=== PATIENT | female | born 1965 | race Caucasian/White ===

== ENCOUNTER 2016-08-14 22:31 | Observation (INO) | payer OTHER ==
[~2016-08-14] VITALS: Ht 335.8 cm; Wt 74.3 kg
[~2016-08-14 22:31] MED LIST: ADVAIR 250-501 EACH IH; ADVAIR 250/501 DISK IH; ALBUTEROL17 GM IH; AMBIEN5 MG PO; ANAPROX DS550 M1 PO; BACTRIM,SEPT1 TABLET PO; CELEBREX200 MG PO; Combivent IH; DESYREL12.5 MG PO; EFFEXOR75 MG PO; ENDOCET 5-3251 EACH PO; ENDOCET 7.5-321 EACH PO; Flagyl PO; LAMISIL250 MG PO; LYRICA150 MG PO; LYRICA75 MG PO; NAPROSYN500 MG PO; NEXIUM40 MG PO; NIASPAN; OPANA ER20 MG PO; PEPCID PO; PEPCID40 MG PO; PERCOCET 5/31 TABLET PO; PROAIR HFA8.5 GM IH; PROTONIX40 MG PO; PROZAC20 MG PO; PROZAC40 MG PO; Protonix PO; SINGULAIR10 MG PO; SPIRIVA1 INHALATI IH; Singulair PO; TOPAMAX100 MG PO; TRAMADOL HCL50 MG PO; TRAZODONE HCL50 MG PO; VIBRAMYCIN100 MG PO; VICODIN 5-3001 EACH PO; Vibramycin, Doryx PO; WELLBUTRIN SR150 MG PO; WELLBUTRIN XL300 MG PO; Wellbutrin XL PO; ZANAFLEX4 MG PO; ZANTAC150 MG PO
[2016-08-14 23:07] LABS: HEMATOCRIT 38.3 % (36.0-46.0); MCH 30.1 PG (29.0-34.0); MCHC 33.4 G/DL (30.0-36.0); MCV 90.1 FL (83-99); MEAN PLAT.VOLUME 10.3 uM^3 (9.5-12.4); PLATELET COUNT 347 K/uL (156-360); RBC DIS.WIDTH-SD 39.4 % (39-53); RED BLOOD COUNT 4.25 M/uL (3.80-5.20); WHITE BLOOD COUNT 12.4 K/uL (4.1-10.2)
[2016-08-14 23:19] LABS: CHLORIDE 107 mEq/L (99-109); POTASSIUM 3.8 mEq/L (3.7-5.4); SODIUM 139 mEq/L (136-147)
[2016-08-14 23:21] LABS: GLUCOSE 106 mg/dL (70-99)
[2016-08-14 23:22] LABS: D-DIMER ELISA 0.66 mg/L FEU (< 0.57)
[2016-08-14 23:23] LABS: ANION GAP 10 MEQ/L (2-14)
[2016-08-14 23:25] LABS: GFR ESTIMATE (CALCULATED) 50 mL/min/
[2016-08-14 23:26] LABS: UREA NITROGEN (BUN) 7 mg/dL (9-23)
[2016-08-14 23:29] LABS: TROP-I INTERPRETATION NEGATIVE; TROPONIN-I < 0.01 ng/mL (0.0-0.30)
[2016-08-14 23:39] LABS: QUANTITATIVE HCG < 4.0 MIU/ML
[2016-08-15 00:21] LABS: ADD MIUA? YES; BILIRUBIN NEGATIVE; BLOOD MODERATE; COLOR YELLOW ((YELLOW)); GLUCOSE (STRIP) NEGATIVE; KETONES NEGATIVE; LEUKOCYTES SMALL; NITRITE NEGATIVE; PROTEIN (STRIP) NEGATIVE; SPECIFIC GRAVITY 1.008 (1.000-1.030); UROBILINOGEN 0.2 MG/DL (0.2-1.0)
[2016-08-15 00:27] LABS: BACTERIA RARE /HPF; EPITHELIAL CELLS RARE /HPF; MUCUS NONE SEEN /LPF; RED BLOOD CELLS 0-5 /HPF (0-5); UCUL ADDED? NO; WHITE BLOOD CELLS 0-5 /HPF (0-5)
[2016-08-15 04:10] VITALS: BP 132/73
[2016-08-15 04:49] LABS: HEMATOCRIT 37.7 % (36.0-46.0); MCH 30.3 PG (29.0-34.0); MCHC 33.2 G/DL (30.0-36.0); MCV 91.5 FL (83-99); MEAN PLAT.VOLUME 10.2 uM^3 (9.5-12.4); PLATELET COUNT 302 K/uL (156-360); RBC DIS.WIDTH-CV 12.2 % (11.8-14.6); RBC DIS.WIDTH-SD 40.9 % (39-53); RED BLOOD COUNT 4.12 M/uL (3.80-5.20); WHITE BLOOD COUNT 8.3 K/uL (4.1-10.2)
[2016-08-15 04:59] LABS: CHLORIDE 108 mEq/L (99-109); POTASSIUM 4.3 mEq/L (3.7-5.4); SODIUM 139 mEq/L (136-147)
[2016-08-15 05:01] LABS: GLUCOSE 123 mg/dL (70-99)
[2016-08-15 05:02] LABS: ANION GAP 11 MEQ/L (2-14)
[2016-08-15 05:03] LABS: TOTAL BILIRUBIN 0.3 mg/dL (0.0-1.0)
[2016-08-15 05:04] LABS: ALKALINE PHOSPHATASE 99 IU/L (3-129)
[2016-08-15 05:05] LABS: GFR ESTIMATE (CALCULATED) 56 mL/min/
[2016-08-15 05:06] LABS: UREA NITROGEN (BUN) 9 mg/dL (9-23)
[2016-08-15 05:11] LABS: TROP-I INTERPRETATION NEGATIVE; TROPONIN-I < 0.01 ng/mL (0.0-0.30)
[2016-08-15] MEDS ORDERED: NAPROSYN500 MG PO (08:59)
[2016-08-15] MEDS ORDERED: GABAPENTIN600 MG PO (09:00)
[2016-08-15] MEDS ORDERED: XANAX1 MG PO (09:01)
[2016-08-15] MEDS ORDERED: AMITRIPTYLINE H75 MG PO (09:01)
[2016-08-15] MEDS ORDERED: MELOXICAM15 MG PO (09:02)
[2016-08-15] MEDS ORDERED: CYMBALTA60 MG PO (09:02)
[2016-08-15 09:59] VITALS: BP 102/56
[2016-08-15 11:09] LABS: TROP-I INTERPRETATION NEGATIVE; TROPONIN-I < 0.01 ng/mL (0.0-0.30)
[2016-08-15 11:36] VITALS: BP 110/60
[2016-08-15] MEDS ORDERED: NICOTINE PATCH1 EAC2 TD (17:02)
[2016-08-15] MEDS ORDERED: ADVAIR HFA120 INHALA IH (17:03)
[2016-08-15] MEDS ORDERED: BACTRIM,SEPT1 TABLET PO (17:38)
== END 2016-08-15 18:41 | disposition home or self-care (01) ==
LOC: EME → EDBD 22:31 → EME 22:31 → EDOF 08-15 02:46 → 5WEST 08-15 03:55
PROVIDERS: Emergency Medicine; Internal Medicine
DX: R07.9 Chest pain, unspecified (principal); F17.200 Nicotine dependence, unspecified, uncomplicated; M79.7 Fibromyalgia; F31.9 Bipolar disorder, unspecified
CPT/HCPCS: 71020; 71275; 80048; 80053; 81003; 84484; 84702; 85027; 85379; 93005; 94640; 99281; 99284; G0378; J1200; J1644; J2270; J2405; J2930; J7030

== ENCOUNTER 2016-10-11 07:55 | Inpatient (IN) | payer OTHER ==
[~2016-10-11] VITALS: Ht 170.2 cm; Wt 68.0 kg
[~2016-10-11 07:55] MED LIST changes: +ADVAIR HFA120 INHALA IH; +AMITRIPTYLINE H75 MG PO; +CYMBALTA60 MG PO; +GABAPENTIN600 MG PO; +MELOXICAM15 MG PO; +NICOTINE PATCH1 EAC2 TD; +XANAX1 MG PO
[2016-10-11 08:51] LABS: BASOPHIL COUNT 0.1 K/uL (0-0.1); EOSINOPHIL (%) 2.3 % (0-5); EOSINOPHIL COUNT 0.4 K/uL (0-0.3); HEMATOCRIT 40.4 % (36.0-46.0); IMMATURE GRANULOCYTE (%) 0.5 % (0.0-0.7); IMMATURE GRANULOCYTE COUNT 0.1 K/uL; INSTRUMENT ABS NEUTROPHIL CT 11.5 K/uL; LYMPHOCYTE COUNT 2.5 K/uL (1.0-2.8); MCH 29.8 PG (29.0-34.0); MCHC 33.4 G/DL (30.0-36.0); MCV 89.2 FL (83-99); MEAN PLAT.VOLUME 10.1 uM^3 (9.5-12.4); MONOCYTE (%) 4.4 % (3-12); MONOCYTE COUNT 0.7 K/uL (0-0.8); NEUTROPHIL (%) 75.9 % (45-76); NEUTROPHIL COUNT 11.5 K/uL (1.8-6.4); PLATELET COUNT 333 K/uL (156-360); RBC DIS.WIDTH-CV 12.5 % (11.8-14.6); RBC DIS.WIDTH-SD 41.1 % (39-53); RED BLOOD COUNT 4.53 M/uL (3.80-5.20); WHITE BLOOD COUNT 15.2 K/uL (4.1-10.2)
[2016-10-11 09:03] LABS: PROTHROMBIN TIME 10.3 (9.2-11.2); PTT 28.2 (25-32)
[2016-10-11 09:07] LABS: CHLORIDE 110 mEq/L (99-109); POTASSIUM 3.7 mEq/L (3.7-5.4); SODIUM 142 mEq/L (136-147)
[2016-10-11 09:10] LABS: GLUCOSE 98 mg/dL (70-99)
[2016-10-11 09:11] LABS: ANION GAP 11 MEQ/L (2-14)
[2016-10-11 09:12] LABS: TOTAL BILIRUBIN 0.8 mg/dL (0.0-1.0)
[2016-10-11 09:13] LABS: ALKALINE PHOSPHATASE 127 IU/L (3-129); GFR ESTIMATE (CALCULATED) > 59 mL/min/; TROP-I INTERPRETATION NEGATIVE; TROPONIN-I < 0.01 ng/mL (0.0-0.30)
[2016-10-11 09:14] LABS: UREA NITROGEN (BUN) 11 mg/dL (9-23)
[2016-10-11 09:17] LABS: LIPASE 29 U/L (1.0-51.0)
[2016-10-11 10:22] LABS: ADD MIUA? YES; BILIRUBIN NEGATIVE; BLOOD MODERATE; COLOR YELLOW ((YELLOW)); GLUCOSE (STRIP) NEGATIVE; KETONES NEGATIVE; LEUKOCYTES NEGATIVE; NITRITE NEGATIVE; PROTEIN (STRIP) NEGATIVE; SPECIFIC GRAVITY 1.021 (1.000-1.030)
[2016-10-11 10:33] LABS: BACTERIA RARE /HPF; EPITHELIAL CELLS 1+ /HPF; MUCUS NONE SEEN /LPF; RED BLOOD CELLS 0-5 /HPF (0-5); UCUL ADDED? NO; URIC ACID CRYSTALS 1+ /HPF; WHITE BLOOD CELLS 0-5 /HPF (0-5)
[2016-10-11] MEDS ORDERED: GABAPENTIN300 MG PO (13:28)
[2016-10-11] MEDS ORDERED: PROAIR HFA8.5 GM IH (13:29)
[2016-10-11] MEDS ORDERED: WELLBUTRIN SR150 MG PO (13:29)
[2016-10-11] MEDS ORDERED: ADVAIR HFA120 INHALA IH (14:46)
[2016-10-11] MEDS ORDERED: BUPROPION HCL150 M2 PO (14:47)
[2016-10-11 16:43] VITALS: BP 134/84
[2016-10-11 20:00] VITALS: BP 112/65
[2016-10-12] VITALS: BP 136/83
[2016-10-12 03:00] VITALS: BP 138/66
[2016-10-12 07:07] LABS: ANION GAP 7 MEQ/L (2-14); CHLORIDE 107 MEQ/L (99-109); GFR ESTIMATE (CALCULATED) > 59 mL/min/; GLUCOSE 107 mg/dL (70-99); SAMPLE HEMOLYSIS CHECK 0; SAMPLE ICTERIC CHECK 0; SAMPLE LIPEMIA CHECK 0; SODIUM 141 MEQ/L (136-147); UREA NITROGEN (BUN) 11 mg/dL (9-23)
[2016-10-12 07:17] LABS: HEMATOCRIT 38.9 % (36.0-46.0); MCH 30.6 PG (29.0-34.0); MCHC 32.6 G/DL (30.0-36.0); MEAN PLAT.VOLUME 10.6 uM^3 (9.5-12.4); PLATELET COUNT 293 K/uL (156-360); RBC DIS.WIDTH-CV 12.9 % (11.8-14.6); RBC DIS.WIDTH-SD 44.6 % (39-53); RED BLOOD COUNT 4.15 M/uL (3.80-5.20); WHITE BLOOD COUNT 12.1 K/uL (4.1-10.2)
[2016-10-12 07:23] LABS: MCV 93.7 FL (83-99)
[2016-10-12 07:27] LABS: POTASSIUM 4.5 MEQ/L (3.7-5.4)
[2016-10-12 09:19] VITALS: BP 115/68
[2016-10-12 09:37] LABS: PROTHROMBIN TIME 10.2 (9.2-11.2); PTT 27.5 (25-32)
[2016-10-12 14:24] LABS: HDL CHOLESTEROL 33 MG/DL (Desirable>=50); LDL CHOLESTEROL 186 mg/dL (Desirable<100); NON-HDL CHOLESTEROL 204 mg/dL (Desirable<160); TOTAL CHOLESTEROL 237 mg/dL (Desirable<200); TRIGLYCERIDES 90 MG/DL (Normal: <150)
[2016-10-12 14:47] LABS: Estimated Average Glucose 105 mg/dL (70-123); HEMOGLOBIN A1c (GLYCOHEMOGLOB) 5.3 % HGB (Below 5.7)
[2016-10-12 15:01] LABS: BASE EXCESS 0 mEq/L (-3 to +3); BICARBONATE 24.8 mEq/L (22-26); COMMENTS - BLOOD GASES A+C+; FI02 21 %; METHEMOGLOBIN 1.7 % (0-1.5); PCO2 40 mm Hg (35-45); PO2 52 mm Hg (80-100); SITE RR; TOTAL RESP RATE 12 resp/min
[2016-10-12 16:47] VITALS: BP 131/71
[2016-10-12 19:45] VITALS: BP 129/63
[2016-10-12 23:47] VITALS: BP 115/69
[2016-10-13 03:39] VITALS: BP 119/70
[2016-10-13 07:14] LABS: HEMATOCRIT 32.7 % (36.0-46.0); MCH 30.9 PG (29.0-34.0); MCV 93.7 FL (83-99); MEAN PLAT.VOLUME 10.7 uM^3 (9.5-12.4); PLATELET COUNT 261 K/uL (156-360); RBC DIS.WIDTH-CV 12.9 % (11.8-14.6); RED BLOOD COUNT 3.49 M/uL (3.80-5.20); WHITE BLOOD COUNT 13.3 K/uL (4.1-10.2)
[2016-10-13 07:32] VITALS: BP 127/69
[2016-10-13 07:37] LABS: ANION GAP 10 MEQ/L (2-14); CHLORIDE 107 MEQ/L (99-109); GFR ESTIMATE (CALCULATED) > 59 mL/min/; GLUCOSE 86 mg/dL (70-99); POTASSIUM 3.7 MEQ/L (3.7-5.4); SAMPLE HEMOLYSIS CHECK 0; SAMPLE ICTERIC CHECK 0; SAMPLE LIPEMIA CHECK 0; SODIUM 141 MEQ/L (136-147); UREA NITROGEN (BUN) 16 mg/dL (9-23)
[2016-10-13 11:06] VITALS: BP 130/77
[2016-10-13 15:59] VITALS: BP 125/75
[2016-10-13 19:36] VITALS: BP 141/85
[2016-10-13 23:50] VITALS: BP 186/83
[2016-10-14 04:02] VITALS: BP 143/92
[2016-10-14 04:11] LABS: POINT-OF-CARE METER ID UU14174225
[2016-10-14 06:00] LABS: MCH 30.2 PG (29.0-34.0); MCHC 32.6 G/DL (30.0-36.0); MCV 92.6 FL (83-99); MEAN PLAT.VOLUME 10.5 uM^3 (9.5-12.4); PLATELET COUNT 269 K/uL (156-360); RBC DIS.WIDTH-CV 12.9 % (11.8-14.6); RBC DIS.WIDTH-SD 43.8 % (39-53); RED BLOOD COUNT 3.67 M/uL (3.80-5.20)
[2016-10-14 06:01] LABS: WHITE BLOOD COUNT 9.1 K/uL (4.1-10.2)
[2016-10-14 08:22] VITALS: BP 147/68
[2016-10-14 12:00] VITALS: BP 156/74
[2016-10-14 15:28] VITALS: BP 162/77
[2016-10-14 19:26] VITALS: BP 120/62
[2016-10-14 23:49] VITALS: BP 136/82
[2016-10-15 04:00] VITALS: BP 129/77
[2016-10-15 04:29] LABS: POINT-OF-CARE METER ID UU14174225
[2016-10-15 07:56] VITALS: BP 131/79
[2016-10-15] MEDS ORDERED: ASPIR-LOW81 MG PO (09:34)
[2016-10-15] MEDS ORDERED: ATORVASTATIN CA40 MG PO (09:34)
[2016-10-15] MEDS ORDERED: AZACTAM2 GM IM (09:37)
[2016-10-15] MEDS ORDERED: FLAGYL500 MG/100 IV (09:37)
[2016-10-15] MEDS ORDERED: TYLENOL REGULA325 MG PO (11:23)
[2016-10-15] MEDS ORDERED: NORCO 10/3251 TABLET PO (11:24)
[2016-10-15] MEDS ORDERED: TORADOL30 MG/ML IV (11:25)
[2016-10-15] MEDS ORDERED: HEPARIN SO5000 UNIT3 SC (11:26)
[2016-10-15] MEDS ORDERED: MORPHINE SULFA1 DOSE IV (11:28)
[2016-10-15] MEDS ORDERED: PEPCID20 MG PO (11:30)
== END 2016-10-15 10:19 | DRG 417 ==
LOC: EME → EDBD 07:55 → 5SOUTH 13:22 → EDOF 13:22 → 5SOUTH 16:02
PROVIDERS: Emergency Medicine; Internal Medicine; Physician Assistant; Physician Assistant Medical
PROC: 0FT44ZZ Resection of Gallbladder, Percutaneous Endoscopic Approach (ICD-10-PCS; principal; 2016-10-12)
DX: K81.0 Acute cholecystitis (principal); I63.9 Cerebral infarction, unspecified; I50.9 Heart failure, unspecified; R56.9 Unspecified convulsions; F17.210 Nicotine dependence, cigarettes, uncomplicated; F32.9 Major depressive disorder, single episode, unspecified; J44.9 Chronic obstructive pulmonary disease, unspecified; G43.909 Migraine, unspecified, not intractable, without status migrainosus; K21.9 Gastro-esophageal reflux disease without esophagitis; R94.31 Abnormal electrocardiogram [ECG] [EKG]; G89.4 Chronic pain syndrome; F41.9 Anxiety disorder, unspecified; N83.202 Unspecified ovarian cyst, left side; R91.1 Solitary pulmonary nodule; Z87.442 Personal history of urinary calculi
CPT/HCPCS: 36600; 70450; 70496; 70498; 70551; 71010; 74177; 76705; 80048; 80053; 80061; 81003; 82803; 82948; 83036; 83605; 83690; 84484; 85025; 85027; 85610; 85730; 88304; 92507 GN; 92523 GN; 92526 GN; 92610 GN; 93005; 94640; 94640 76; 95819; 97530 GP; 97532 GN; 99202; 99281; 99285; J1200; J1335; J1644; J1650; J1885; J2270; J2405; J2920; J3010; J7030; J7050; J7120; S0028; S0030; S0073

== ENCOUNTER 2016-10-15 10:24 | Inpatient (IN) | payer OTHER ==
[~2016-10-15] VITALS: Ht 170.2 cm; Wt 78.1 kg
[~2016-10-15 10:24] MED LIST changes: +ASPIR-LOW81 MG PO; +ATORVASTATIN CA40 MG PO; +AZACTAM2 GM IM; +BUPROPION HCL150 M2 PO; +FLAGYL500 MG/100 IV; +GABAPENTIN300 MG PO
[2016-10-15 10:45] VITALS: BP 129/77
[2016-10-15] MEDS ORDERED: TYLENOL REGULA325 MG PO (11:23)
[2016-10-15] MEDS ORDERED: NORCO 10/3251 TABLET PO (11:24)
[2016-10-15] MEDS ORDERED: TORADOL30 MG/ML IV (11:25)
[2016-10-15] MEDS ORDERED: HEPARIN SO5000 UNIT3 SC (11:26)
[2016-10-15] MEDS ORDERED: MORPHINE SULFA1 DOSE IV (11:28)
[2016-10-15] MEDS ORDERED: PEPCID20 MG PO (11:30)
[2016-10-15 15:01] VITALS: BP 120/90
[2016-10-15 17:54] VITALS: BP 135/70
[2016-10-15 23:47] VITALS: BP 110/61
[2016-10-16 06:05] VITALS: BP 127/76
[2016-10-16 07:23] LABS: HEMATOCRIT 37.3 % (36.0-46.0); MCH 31.6 PG (29.0-34.0); MCHC 33.2 G/DL (30.0-36.0); MCV 94.9 FL (83-99); MEAN PLAT.VOLUME 10.6 uM^3 (9.5-12.4); PLATELET COUNT 296 K/uL (156-360); RBC DIS.WIDTH-CV 13.1 % (11.8-14.6); RBC DIS.WIDTH-SD 45.8 % (39-53); RED BLOOD COUNT 3.93 M/uL (3.80-5.20); WHITE BLOOD COUNT 12.4 K/uL (4.1-10.2)
[2016-10-16 07:45] LABS: ALKALINE PHOSPHATASE 118 IU/L (3-129); ANION GAP 8 MEQ/L (2-14); CHLORIDE 106 MEQ/L (99-109); GFR ESTIMATE (CALCULATED) > 59 mL/min/; GLUCOSE 90 mg/dL (70-99); POTASSIUM 3.2 MEQ/L (3.7-5.4); SAMPLE HEMOLYSIS CHECK 0; SAMPLE ICTERIC CHECK 0; SAMPLE LIPEMIA CHECK 0; SODIUM 144 MEQ/L (136-147); TOTAL BILIRUBIN 0.5 MG/DL (0.0-1.0); UREA NITROGEN (BUN) 12 mg/dL (9-23)
[2016-10-16 15:28] VITALS: BP 101/56
[2016-10-17 05:30] VITALS: BP 113/68
[2016-10-17 08:13] LABS: ANION GAP 8 MEQ/L (2-14); CHLORIDE 111 MEQ/L (99-109); GFR ESTIMATE (CALCULATED) > 59 mL/min/; GLUCOSE 79 mg/dL (70-99); SAMPLE HEMOLYSIS CHECK 0; SAMPLE ICTERIC CHECK 0; SAMPLE LIPEMIA CHECK 0; SODIUM 144 MEQ/L (136-147); UREA NITROGEN (BUN) 15 mg/dL (9-23)
[2016-10-17 08:14] LABS: POTASSIUM 4.6 MEQ/L (3.7-5.4)
[2016-10-17 15:50] VITALS: BP 118/71
[2016-10-18 05:14] VITALS: BP 106/66
[2016-10-18 15:55] VITALS: BP 109/60
[2016-10-19 05:35] VITALS: BP 94/58
[2016-10-19 17:15] VITALS: BP 108/68
[2016-10-20 05:11] VITALS: BP 99/64
[2016-10-20 15:28] VITALS: BP 104/65
[2016-10-21 04:43] VITALS: BP 107/72
[2016-10-21 15:09] VITALS: BP 116/74
[2016-10-22 05:57] VITALS: BP 97/59
[2016-10-22 14:58] VITALS: BP 112/71
[2016-10-23 05:30] VITALS: BP 94/53
[2016-10-23 15:14] VITALS: BP 116/72
[2016-10-24 04:33] VITALS: BP 107/75
[2016-10-24 15:45] VITALS: BP 104/69
[2016-10-24 17:32] LABS: APCR to FVL REFLEX Has been added (()); DRVVT Mixing Study Interp Not Indicated (()); PROTEIN C FUNCTIONAL ACTIVITY+ 74 % (70-180); PTT-LA 39 sec (<=40); Protein S, Free 96 % normal (50-147); Thrombosis Consult Level Limited (()); dRVVT Screen 41 sec (<=45)
[2016-10-25 04:03] VITALS: BP 93/59
[2016-10-25 07:35] LABS: HEMATOCRIT 40.2 % (36.0-46.0); MCH 30.8 PG (29.0-34.0); MCHC 32.3 G/DL (30.0-36.0); MCV 95.3 FL (83-99); MEAN PLAT.VOLUME 10.4 uM^3 (9.5-12.4); RBC DIS.WIDTH-CV 13.1 % (11.8-14.6); RBC DIS.WIDTH-SD 45.7 % (39-53); RED BLOOD COUNT 4.22 M/uL (3.80-5.20)
[2016-10-25 07:36] LABS: PLATELET COUNT 430 K/uL (156-360)
[2016-10-25 08:00] LABS: ALKALINE PHOSPHATASE 99 IU/L (3-129); ANION GAP 10 MEQ/L (2-14); CHLORIDE 106 MEQ/L (99-109); GFR ESTIMATE (CALCULATED) > 59 mL/min/; GLUCOSE 77 mg/dL (70-99); POTASSIUM 5.1 MEQ/L (3.7-5.4); SAMPLE HEMOLYSIS CHECK 1; SAMPLE ICTERIC CHECK 0; SAMPLE LIPEMIA CHECK 0; SODIUM 142 MEQ/L (136-147); TOTAL BILIRUBIN 0.4 MG/DL (0.0-1.0); UREA NITROGEN (BUN) 25 mg/dL (9-23)
[2016-10-25 11:18] LABS: ANTITHROMBIN III ACTIVITY+ 93 % activi (80-120)
[2016-10-25 15:00] VITALS: BP 114/65
[2016-10-26 05:57] VITALS: BP 120/71
[2016-10-26 15:20] VITALS: BP 117/72
[2016-10-27 05:01] VITALS: BP 95/52
[2016-10-28 05:24] VITALS: BP 94/58
[2016-10-28 15:09] VITALS: BP 119/74
[2016-10-29 04:30] VITALS: BP 111/57
[2016-10-29 15:01] VITALS: BP 110/72
[2016-10-29 16:50] VITALS: BP 110/72
[2016-10-30 05:09] VITALS: BP 97/63
[2016-10-30 15:00] VITALS: BP 132/68
[2016-10-30 15:14] LABS: HEMATOCRIT 39.1 % (36.0-46.0); MCHC 33.5 G/DL (30.0-36.0); MCV 92.7 FL (83-99); MEAN PLAT.VOLUME 9.8 uM^3 (9.5-12.4); PLATELET COUNT 434 K/uL (156-360); RBC DIS.WIDTH-CV 13.1 % (11.8-14.6); RBC DIS.WIDTH-SD 44.1 % (39-53); RED BLOOD COUNT 4.22 M/uL (3.80-5.20); WHITE BLOOD COUNT 11.7 K/uL (4.1-10.2)
[2016-10-30 15:31] LABS: ALKALINE PHOSPHATASE 90 IU/L (3-129); ANION GAP 11 MEQ/L (2-14); CHLORIDE 105 MEQ/L (99-109); GFR ESTIMATE (CALCULATED) > 59 mL/min/; GLUCOSE 69 mg/dL (70-99); POTASSIUM 4.2 MEQ/L (3.7-5.4); SAMPLE HEMOLYSIS CHECK 0; SAMPLE ICTERIC CHECK 0; SAMPLE LIPEMIA CHECK 0; SODIUM 139 MEQ/L (136-147); TOTAL BILIRUBIN 0.3 MG/DL (0.0-1.0); UREA NITROGEN (BUN) 24 mg/dL (9-23)
[2016-10-30 15:34] LABS: TROP-I INTERPRETATION NEGATIVE; TROPONIN-I < 0.01 ng/mL (0.0-0.30)
[2016-10-30 15:44] VITALS: BP 132/48
[2016-10-30 16:01] LABS: D-DIMER ELISA 0.45 mg/L FEU (< 0.57)
[2016-10-30 16:21] LABS: POINT-OF-CARE METER ID UU14174215
[2016-10-30 19:39] LABS: TROP-I INTERPRETATION NEGATIVE; TROPONIN-I < 0.01 ng/mL (0.0-0.30)
[2016-10-30 21:15] LABS: POINT-OF-CARE METER ID UU14174215
[2016-10-31 01:14] LABS: TROP-I INTERPRETATION NEGATIVE; TROPONIN-I < 0.01 ng/mL (0.0-0.30)
[2016-10-31 05:39] VITALS: BP 95/53
[2016-10-31 06:32] LABS: POINT-OF-CARE METER ID UU14174215; POINT-OF-CARE USER ID ENVGAF
[2016-10-31 07:36] LABS: TROP-I INTERPRETATION NEGATIVE; TROPONIN-I 0.01 ng/mL (0.0-0.30)
[2016-10-31 11:18] LABS: POINT-OF-CARE METER ID UU14174215; POINT-OF-CARE USER ID ENVGAF
[2016-10-31 15:46] VITALS: BP 101/57
[2016-10-31 16:23] LABS: POINT-OF-CARE METER ID UU13113720
[2016-10-31 21:01] LABS: POINT-OF-CARE METER ID UU13113720
[2016-11-01 05:08] VITALS: BP 98/59
[2016-11-01 06:35] LABS: POINT-OF-CARE METER ID UU13113720; POINT-OF-CARE USER ID ENVGAF
[2016-11-01 11:28] LABS: POINT-OF-CARE METER ID UU13113720; POINT-OF-CARE USER ID ENVGAF
[2016-11-01 15:29] VITALS: BP 133/70
[2016-11-01 16:21] LABS: POINT-OF-CARE METER ID UU14174215
[2016-11-01 21:24] LABS: POINT-OF-CARE METER ID UU13113720
[2016-11-02 05:30] VITALS: BP 90/54
[2016-11-02 06:48] LABS: POINT-OF-CARE METER ID UU13113720; POINT-OF-CARE USER ID ENVGAF
[2016-11-02 15:58] VITALS: BP 102/63
[2016-11-03 05:50] VITALS: BP 102/65
[2016-11-03 07:21] LABS: HEMATOCRIT 40.2 % (36.0-46.0); MCHC 32.3 G/DL (30.0-36.0); MCV 92.8 FL (83-99); MEAN PLAT.VOLUME 9.7 uM^3 (9.5-12.4); PLATELET COUNT 389 K/uL (156-360); RBC DIS.WIDTH-CV 12.8 % (11.8-14.6); RBC DIS.WIDTH-SD 43.9 % (39-53); RED BLOOD COUNT 4.33 M/uL (3.80-5.20); WHITE BLOOD COUNT 11.8 K/uL (4.1-10.2)
[2016-11-03 07:46] LABS: ALKALINE PHOSPHATASE 89 IU/L (3-129); ANION GAP 8 MEQ/L (2-14); CHLORIDE 106 MEQ/L (99-109); GFR ESTIMATE (CALCULATED) 50 mL/min/; GLUCOSE 85 mg/dL (70-99); POTASSIUM 4.7 MEQ/L (3.7-5.4); SAMPLE HEMOLYSIS CHECK 0; SAMPLE ICTERIC CHECK 0; SAMPLE LIPEMIA CHECK 0; SODIUM 142 MEQ/L (136-147); TOTAL BILIRUBIN 0.3 MG/DL (0.0-1.0); UREA NITROGEN (BUN) 29 mg/dL (9-23)
[2016-11-03 15:21] VITALS: BP 100/56
[2016-11-04 05:44] VITALS: BP 93/54
[2016-11-04 05:47] LABS: BASOPHIL COUNT 0.1 K/uL (0-0.1); EOSINOPHIL (%) 8.2 % (0-5); EOSINOPHIL COUNT 1.1 K/uL (0-0.3); HEMATOCRIT 35.5 % (36.0-46.0); IMMATURE GRANULOCYTE (%) 0.3 % (0.0-0.7); INSTRUMENT ABS NEUTROPHIL CT 7.5 K/uL; LYMPHOCYTE COUNT 3.9 K/uL (1.0-2.8); MCH 30.9 PG (29.0-34.0); MCHC 33.2 G/DL (30.0-36.0); MCV 92.9 FL (83-99); MEAN PLAT.VOLUME 10.2 uM^3 (9.5-12.4); MONOCYTE (%) 6.1 % (3-12); MONOCYTE COUNT 0.8 K/uL (0-0.8); NEUTROPHIL (%) 56.2 % (45-76); NEUTROPHIL COUNT 7.5 K/uL (1.8-6.4); PLATELET COUNT 359 K/uL (156-360); RBC DIS.WIDTH-CV 13.2 % (11.8-14.6); RBC DIS.WIDTH-SD 44.5 % (39-53); RED BLOOD COUNT 3.82 M/uL (3.80-5.20); WHITE BLOOD COUNT 13.4 K/uL (4.1-10.2)
[2016-11-04 06:37] LABS: ALKALINE PHOSPHATASE 79 IU/L (3-129); CHLORIDE 105 MEQ/L (99-109); GFR ESTIMATE (CALCULATED) 50 mL/min/; GLUCOSE 83 mg/dL (70-99); POTASSIUM 4.7 MEQ/L (3.7-5.4); SAMPLE HEMOLYSIS CHECK 0; SAMPLE ICTERIC CHECK 0; SAMPLE LIPEMIA CHECK 0; SODIUM 140 MEQ/L (136-147); UREA NITROGEN (BUN) 29 mg/dL (9-23)
[2016-11-04 06:38] LABS: ANION GAP 9 MEQ/L (2-14); TOTAL BILIRUBIN 0.4 MG/DL (0.0-1.0)
[2016-11-04] MEDS ORDERED: NICOTINE PATCH1 EAC2 TD (09:33)
[2016-11-04] MEDS ORDERED: PROAIR HFA8.5 GM IH (09:33)
[2016-11-04] MEDS ORDERED: ASPIR-LOW81 MG PO (09:33)
[2016-11-04] MEDS ORDERED: ADVAIR HFA120 INHALA IH (09:33)
[2016-11-04] MEDS ORDERED: ATORVASTATIN CA40 MG PO (09:33)
[2016-11-04] MEDS ORDERED: GABAPENTIN400 MG PO (09:33)
[2016-11-04] MEDS ORDERED: PEPCID20 MG PO (09:33)
[2016-11-04 15:04] VITALS: BP 117/74
== END 2016-11-04 18:27 | disposition home health service (06) | DRG 57 ==
LOC: 3WEST 10:24
PROVIDERS: Hospitalist; Physical Medicine & Rehabilitation Pain Medicine; Specialist; Thoracic Surgery (Cardiothoracic Vascular Surgery)
PROC: F07M0ZZ Range of Motion and Joint Mobility Treatment of Musculoskeletal System - Whole Body (ICD-10-PCS; principal; 2016-10-15)
DX: I69.354 Hemiplegia and hemiparesis following cerebral infarction affecting left non-dominant side (principal); I69.328 Other speech and language deficits following cerebral infarction; K21.9 Gastro-esophageal reflux disease without esophagitis; J44.9 Chronic obstructive pulmonary disease, unspecified; G89.4 Chronic pain syndrome; R13.10 Dysphagia, unspecified; I69.391 Dysphagia following cerebral infarction; F32.9 Major depressive disorder, single episode, unspecified; F41.9 Anxiety disorder, unspecified; Z87.74 Personal history of (corrected) congenital malformations of heart and circulatory system; I69.322 Dysarthria following cerebral infarction; D62 Acute posthemorrhagic anemia; R33.9 Retention of urine, unspecified; G43.909 Migraine, unspecified, not intractable, without status migrainosus; F41.1 Generalized anxiety disorder; F17.200 Nicotine dependence, unspecified, uncomplicated; R07.89 Other chest pain; G89.18 Other acute postprocedural pain; E87.6 Hypokalemia; R41.0 Disorientation, unspecified; T40.2X5A Adverse effect of other opioids, initial encounter; N28.1 Cyst of kidney, acquired
CPT/HCPCS: 71010; 74150; 74230; 80048; 80053; 81240 90; 82948; 83090 90; 84484; 85025; 85027; 85240 90; 85300 90; 85303 90; 85305 90; 85306 90; 85307 90; 85379; 85613 90; 85730 90; 86146 90; 86147 90; 87086; 92507 GN; 92523 GN; 92526 GN; 92610 GN; 92611 GN; 93005; 94640 76; 94760; 97110 GO; 97530 GP; 97532 GN; 99202; J1650; J7050; S0030; S0073